=== PATIENT | male | born 1955 | race Two or more races ===

== ENCOUNTER → 2024-01-19 | Outpatient (CLI) | payer MEDICARE, MEDICAID, SELFPAY ==
--- NOTE | 2024-01-19 10:37 | XR_ITS ---
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 FINDINGS: No change in surgical clips right mediastinum and right perihilar scarring compared with June 16, 2023 Mild elevation right hemidiaphragm No interval pneumonia or pulmonary edema IMPRESSION: No interval pneumonia or pulmonary edema
== END | disposition home or self-care (01) ==
LOC: CDIM 10:00
PROVIDERS: PCP Family Medicine; Referring Provider Family Medicine; Visit Provider Family Medicine
DX: B38.1 Chronic pulmonary coccidioidomycosis (principal)
CPT/HCPCS: 71046

== ENCOUNTER → 2024-06-24 | Outpatient (CLI) | payer MEDICARE, MEDICAID, SELFPAY ==
--- NOTE | 2024-06-24 12:26 | XR_ITS ---
Examination: Arterial duplex lower extremity study. Date and time of exam: June 24, 2024 1315 hours INDICATIONS: Right leg pain beginning 3 months ago Findings: Duplex sonographic imaging of the lower extremity arteries using B-mode/Aldrich scale imaging and Doppler spectral analysis and color flow. Ankle brachial indices have been recorded. Right common femoral artery demonstrates triphasic flow. Right superficial femoral artery demonstrates triphasic flow. Right popliteal artery demonstrates triphasic flow. Right posterior tibial artery demonstrated triphasic flow. Right ankle/brachial index is 1.1. Left common femoral artery demonstrates triphasic flow. Left superficial femoral artery demonstrates triphasic flow. Left popliteal artery demonstrates triphasic flow. Left posterior tibial artery demonstrated triphasic flow. Left ankle/brachial index is 1.2. Impression: No significant peripheral obstructive arterial disease
== END | disposition home or self-care (01) ==
LOC: SDIM 12:10
PROVIDERS: PCP Family Medicine; Referring Provider Family Medicine; Visit Provider Family Medicine
DX: I73.9 Peripheral vascular disease, unspecified (principal)
CPT/HCPCS: 93925

== ENCOUNTER 2024-12-22 08:51 | Emergency (ER) | payer MEDICARE, MEDICAID, SELFPAY ==
[2024-12-22 09:02] VITALS: PULSE 65; RESP 18; O2SAT 98; BMI 28.0
[2024-12-22 09:12] VITALS: BP 142/74; PULSE 75; RESP 19; TEMP 36.6; O2SAT 99
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
[2024-12-22] MEDS: IBUPROFEN TAB 400 MG TABLET 800 MG PO (09:29)
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
== END 2024-12-22 11:40 | disposition home or self-care (01) ==
PROVIDERS: Emergency Provider Emergency Medicine; PCP Family Medicine
DX: S13.4XXA Sprain of ligaments of cervical spine, initial encounter (principal); V89.2XXA Person injured in unspecified motor-vehicle accident, traffic, initial encounter; Y92.410 Unspecified street and highway as the place of occurrence of the external cause
CPT/HCPCS: 70450; 72125; 72128; 72131; 99282; A9270

== ENCOUNTER → 2025-01-24 | Outpatient (CLI) | payer MEDICARE, MEDICAID, SELFPAY ==
--- NOTE | 2025-01-24 10:42 | XR_ITS ---
Examination: Lumbar spine, 5 views Technique: Lumbar spine AP, lateral, coned lateral lower lumbar spine, bilateral obliques 5 views Exam date and time: January 24, 2025, 1053 hours INDICATIONS: Low back pain radiating down the right leg 6 months FINDINGS: Moderate osteopenia Lumbar dextroscoliosis 10 degrees Advanced diffuse facet arthropathy Advanced degenerative disc disease L3-L4, L5-S1 No spondylolisthesis IMPRESSION: Advanced degenerative disc disease L3-L4, L5-S1
== END | disposition home or self-care (01) ==
LOC: CDIM 10:27
PROVIDERS: PCP Family Medicine; Referring Provider Family Medicine; Visit Provider Family Medicine
DX: M51.370 Other intervertebral disc degeneration, lumbosacral region with discogenic back pain only (principal); M51.360 Other intervertebral disc degeneration, lumbar region with discogenic back pain only
CPT/HCPCS: 72110